=== PATIENT | male | born 1965 | race Caucasian/White ===

== ENCOUNTER 2019-12-29 10:33 | Emergency (ER) | payer OTHER, SELFPAY ==
[~2019-12-29] VITALS: Ht 180.3 cm; Wt 99.8 kg
[2019-12-29 10:34] VITALS: Ht 180.3 cm; Wt 99.8 kg
[2019-12-29 10:48] VITALS: BP 121/54
== END 2019-12-29 17:06 | disposition expired ==
LOC: ED 10:33
DX: I46.9 Cardiac arrest, cause unspecified (principal); U07.1 COVID-19
CPT/HCPCS: J0171; J7030